=== PATIENT | female | born 2000 | race Caucasian/White ===

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

== ENCOUNTER 2018-01-06 11:02 | Emergency (ER) | payer OTHER ==
[~2018-01-06] VITALS: Ht 165.1 cm; Wt 97.7 kg
[~2018-01-06 11:02] MED LIST changes: +FLEXERIL 1010 MG/TAB PO
[2018-01-06 11:11] VITALS: TEMP 98.3
[2018-01-06 11:37] LABS: COLLECTION METHOD CATHETER
[2018-01-06 11:51] LABS: MUCOUS Present /lpf; PH 5 (5-8); SQUAMOUS EPITHELIAL 0-2 /hpf; URINE APPEARANCE Hazy; URINE BACTERIA None Seen /hpf; URINE BILIRUBIN Negative (NEGATIVE); URINE BLOOD 3+ (NEGATIVE); URINE COLOR Yellow; URINE GLUCOSE Negative (NEGATIVE); URINE KETONE Negative (NEGATIVE); URINE LEUKOCYTE ESTERASE Negative (NEGATIVE); URINE NITRATE Negative (NEGATIVE); URINE PROTEIN(semi-quant) Negative (NEGATIVE); URINE RBC >50 /hpf; URINE UROBILINOGEN Negative (NEGATIVE)
[2018-01-06 11:58] LABS: BASO # 0.1 (0.0-0.2); BASO % 0.5 % (0.0-2.0); EOS # 3.7 (0.0-0.7); EOS % 26.2 % (0-4.0); GRAN # 6.7 (1.4-6.5); HEMOGLOBIN 11.7 g/dl (12.0-15.0); LYMPH % 21.8 % (20.0-51.0); MEAN CELL VOLUME 81 fl (80.0-95.0); MEAN CORPUSCULAR HEMOGLOBIN 26 pg (26.0-32.0); MEAN CORPUSCULAR HGB CONC 32 g/dl (33.0-37.0); MEAN PLATELET VOLUME 9.8 fl (7.4-10.4); MONO # 0.4 (0.1-0.6); MONO % 3.2 % (1.7-9.3); PLATELET COUNT 352 K/mm3 (130-400); RED BLOOD COUNT 4.57 M/mm3 (4.10-5.30); REDCELL DISTRIBUTION WIDTH-CV 14.9 % (11.5-14.5)
[2018-01-06 12:03] LABS: BILIRUBIN,TOTAL 0.5 mg/dL (0.0-1.0); CALCIUM 9.3 mg/dL (8.4-10.2); CREATININE, serum 0.72 mg/dL (0.52-1.25); POTASSIUM 4.5 mmol/L (3.4-5.0); TOTAL PROTEIN 7.6 gm/dL (6.4-8.2)
[2018-01-06 12:10] LABS: HEMATOCRIT 36.9 % (35.0-45.0)
[2018-01-06 14:23] VITALS: BP 137/87; PULSE 89
== END 2018-01-06 14:23 | disposition home or self-care (01) ==
LOC: COL.ER 11:02
PROVIDERS: Nurse Practitioner
DX: R10.2 Pelvic and perineal pain (principal); E11.9 Type 2 diabetes mellitus without complications; F17.210 Nicotine dependence, cigarettes, uncomplicated; Z79.4 Long term (current) use of insulin

== ENCOUNTER 2018-01-12 05:24 | Emergency (ER) | payer OTHER ==
[~2018-01-12] VITALS: Ht 165.1 cm; Wt 97.7 kg
[2018-01-12 05:28] VITALS: TEMP 98.2
[2018-01-12] MEDS ORDERED: LANTUS100 U/ML SQ (05:43)
[2018-01-12] MEDS ORDERED: ALBUTEROL0.83 MG/ML IH (05:46)
[2018-01-12 06:18] LABS: BASO # 0.1 (0.0-0.2); BASO % 0.5 % (0.0-2.0); EOS # 2.6 (0.0-0.7); EOS % 20.7 % (0-4.0); GRAN # 5.3 (1.4-6.5); GRAN % 42.5 % (42.2-75.2); HEMATOCRIT 37.4 % (35.0-45.0); HEMOGLOBIN 11.7 g/dl (12.0-15.0); LYMPH # 3.9 (1.2-3.4); LYMPH % 31.2 % (20.0-51.0); MEAN CELL VOLUME 82 fl (80.0-95.0); MEAN CORPUSCULAR HEMOGLOBIN 26 pg (26.0-32.0); MEAN CORPUSCULAR HGB CONC 31 g/dl (33.0-37.0); MEAN PLATELET VOLUME 9.8 fl (7.4-10.4); MONO # 0.6 (0.1-0.6); MONO % 4.9 % (1.7-9.3); PLATELET COUNT 408 K/mm3 (130-400); RED BLOOD COUNT 4.59 M/mm3 (4.10-5.30); REDCELL DISTRIBUTION WIDTH-CV 14.6 % (11.5-14.5)
[2018-01-12 06:54] LABS: ALBUMIN 3.8 gm/dL (3.5-5.0); BILIRUBIN,TOTAL 0.1 mg/dL (0.0-1.0); CREATININE, serum 0.81 mg/dL (0.52-1.25); POTASSIUM 3.7 mmol/L (3.4-5.0); TOTAL PROTEIN 7.4 gm/dL (6.4-8.2)
[2018-01-12] MEDS ORDERED: ZITHROMAX Z PA250 MG PO (07:18)
[2018-01-12] MEDS ORDERED: PREDNISONE20 MG PO (07:18)
[2018-01-12 07:35] VITALS: BP 114/87; PULSE 95
== END 2018-01-12 07:34 | disposition home or self-care (01) ==
LOC: COL.ER 05:24
PROVIDERS: Emergency Medicine
DX: J45.901 Unspecified asthma with (acute) exacerbation (principal); E10.9 Type 1 diabetes mellitus without complications
CPT/HCPCS: J2930; J7030

== ENCOUNTER 2018-01-17 21:44 | Emergency (ER) | payer OTHER ==
[~2018-01-17] VITALS: Ht 165.1 cm; Wt 97.0 kg
[~2018-01-17 21:44] MED LIST changes: +ALBUTEROL0.83 MG/ML IH; +LANTUS100 U/ML SQ; +ZITHROMAX Z PA250 MG PO
[2018-01-17 21:50] VITALS: TEMP 98.1
[2018-01-17 23:00] LABS: BASO # 0.1 (0.0-0.2); BASO % 0.5 % (0.0-2.0); EOS # 2.5 (0.0-0.7); EOS % 13.5 % (0-4.0); GRAN # 10.4 (1.4-6.5); GRAN % 56.3 % (42.2-75.2); HEMATOCRIT 39.7 % (35.0-45.0); HEMOGLOBIN 12.5 g/dl (12.0-15.0); LYMPH # 4.5 (1.2-3.4); LYMPH % 24.4 % (20.0-51.0); MEAN CELL VOLUME 80 fl (80.0-95.0); MEAN CORPUSCULAR HEMOGLOBIN 25 pg (26.0-32.0); MEAN CORPUSCULAR HGB CONC 32 g/dl (33.0-37.0); MEAN PLATELET VOLUME 9.6 fl (7.4-10.4); MONO # 0.9 (0.1-0.6); MONO % 4.9 % (1.7-9.3); PLATELET COUNT 440 K/mm3 (130-400); RED BLOOD COUNT 4.94 M/mm3 (4.10-5.30); REDCELL DISTRIBUTION WIDTH-CV 14.3 % (11.5-14.5)
[2018-01-17] MEDS ORDERED: NOVOLOG FLEX100 U/ML SQ (23:08)
[2018-01-17] MEDS ORDERED: PRINIVIL5 MG PO (23:10)
[2018-01-17 23:11] LABS: BILIRUBIN,TOTAL 0.2 mg/dL (0.0-1.0); C-REACTIVE PROTEIN 1.8 mg/dL (0.0-0.9); CREATININE, serum 0.81 mg/dL (0.52-1.25); TOTAL PROTEIN 7.7 gm/dL (6.4-8.2)
[2018-01-17] MEDS ORDERED: LEVORA-28 30 MC1 TA1 PO (23:11)
[2018-01-17 23:28] LABS: COLLECTION METHOD CLEAN CATCH
[2018-01-17 23:37] LABS: MUCOUS Present /lpf; PH 6 (5-8); SQUAMOUS EPITHELIAL 0-2 /hpf; URINE APPEARANCE Hazy; URINE BACTERIA None Seen /hpf; URINE BILIRUBIN Negative (NEGATIVE); URINE BLOOD 3+ (NEGATIVE); URINE COLOR Yellow; URINE GLUCOSE Negative (NEGATIVE); URINE KETONE Negative (NEGATIVE); URINE LEUKOCYTE ESTERASE 1+ (NEGATIVE); URINE NITRATE Negative (NEGATIVE); URINE PROTEIN(semi-quant) 1+ (NEGATIVE); URINE RBC 20-50 /hpf; URINE UROBILINOGEN Negative (NEGATIVE)
[2018-01-18] MEDS ORDERED: CIPRO 500MG TA500 MG PO (00:31)
[2018-01-18 00:49] VITALS: BP 129/78; PULSE 77
== END 2018-01-18 00:49 | disposition home or self-care (01) ==
LOC: COL.ER 21:44
PROVIDERS: Emergency Medicine
DX: N12 Tubulo-interstitial nephritis, not specified as acute or chronic (principal); N39.0 Urinary tract infection, site not specified; N83.209 Unspecified ovarian cyst, unspecified side; E11.9 Type 2 diabetes mellitus without complications; F17.210 Nicotine dependence, cigarettes, uncomplicated; Z79.51 Long term (current) use of inhaled steroids; Z79.4 Long term (current) use of insulin
CPT/HCPCS: J0696; J2405; J3010; J7030; Q9967

== ENCOUNTER 2018-01-31 22:56 | Emergency (ER) | payer OTHER ==
[~2018-01-31] VITALS: Ht 165.1 cm; Wt 97.7 kg
[~2018-01-31 22:56] MED LIST changes: +CIPRO 500MG TA500 MG PO; +LEVORA-28 30 MC1 TA1 PO; +NOVOLOG FLEX100 U/ML SQ
[2018-01-31 23:02] VITALS: BP 123/65; TEMP 98.8
[2018-01-31 23:58] VITALS: PULSE 80
== END 2018-01-31 23:58 | disposition home or self-care (01) ==
LOC: COL.ER 22:56
DX: Z32.01 Encounter for pregnancy test, result positive (principal); F31.9 Bipolar disorder, unspecified; J45.909 Unspecified asthma, uncomplicated; F17.210 Nicotine dependence, cigarettes, uncomplicated; E11.9 Type 2 diabetes mellitus without complications; Z79.4 Long term (current) use of insulin; Z79.51 Long term (current) use of inhaled steroids

== ENCOUNTER 2018-02-05 16:26 | Emergency (ER) | payer OTHER ==
[~2018-02-05] VITALS: Ht 165.1 cm; Wt 97.7 kg
[2018-02-05 16:31] VITALS: TEMP 98.1
[2018-02-05 17:29] LABS: BASO # 0.1 (0.0-0.2); BASO % 0.4 % (0.0-2.0); EOS # 1.1 (0.0-0.7); EOS % 9.1 % (0-4.0); GRAN # 6.6 (1.4-6.5); GRAN % 56.5 % (42.2-75.2); HEMOGLOBIN 10.8 g/dl (12.0-15.0); LYMPH # 3.5 (1.2-3.4); LYMPH % 29.3 % (20.0-51.0); MEAN CELL VOLUME 82 fl (80.0-95.0); MEAN CORPUSCULAR HEMOGLOBIN 26 pg (26.0-32.0); MEAN CORPUSCULAR HGB CONC 31 g/dl (33.0-37.0); MEAN PLATELET VOLUME 9.6 fl (7.4-10.4); MONO # 0.5 (0.1-0.6); MONO % 4.4 % (1.7-9.3); PLATELET COUNT 319 K/mm3 (130-400); RED BLOOD COUNT 4.23 M/mm3 (4.10-5.30); REDCELL DISTRIBUTION WIDTH-CV 15.3 % (11.5-14.5)
[2018-02-05 17:30] LABS: HEMATOCRIT 34.5 % (35.0-45.0)
[2018-02-05 17:32] LABS: COLLECTION METHOD CLEAN CATCH
[2018-02-05 17:38] LABS: ALBUMIN 3.8 gm/dL (3.5-5.0); BILIRUBIN,TOTAL 0.2 mg/dL (0.0-1.0); CREATININE, serum 0.7 mg/dL (0.52-1.25); POTASSIUM 4.1 mmol/L (3.4-5.0); TOTAL PROTEIN 7.3 gm/dL (6.4-8.2)
[2018-02-05 17:39] LABS: MUCOUS Present /lpf; PH 5 (5-8); URINE APPEARANCE Hazy; URINE BACTERIA Rare /hpf; URINE BILIRUBIN Negative (NEGATIVE); URINE BLOOD Negative (NEGATIVE); URINE COLOR Yellow; URINE GLUCOSE Negative (NEGATIVE); URINE KETONE Negative (NEGATIVE); URINE LEUKOCYTE ESTERASE Negative (NEGATIVE); URINE NITRATE Negative (NEGATIVE); URINE PROTEIN(semi-quant) Negative (NEGATIVE); URINE RBC 0-2 /hpf; URINE UROBILINOGEN Negative (NEGATIVE)
[2018-02-05 18:29] VITALS: BP 111/81
[2018-02-05] MEDS ORDERED: FLAGYL500 MG PO (18:46)
[2018-02-05 19:01] VITALS: PULSE 80
== END 2018-02-05 19:02 | disposition home or self-care (01) ==
LOC: COL.ER 16:26
PROVIDERS: Nurse Practitioner
DX: O26.891 Other specified pregnancy related conditions, first trimester (principal); O24.011 Pre-existing type 1 diabetes mellitus, in pregnancy, first trimester; O99.511 Diseases of the respiratory system complicating pregnancy, first trimester; O99.341 Other mental disorders complicating pregnancy, first trimester; O99.331 Smoking (tobacco) complicating pregnancy, first trimester; J45.909 Unspecified asthma, uncomplicated; F17.210 Nicotine dependence, cigarettes, uncomplicated; E10.8 Type 1 diabetes mellitus with unspecified complications; F31.9 Bipolar disorder, unspecified; F41.9 Anxiety disorder, unspecified; Z3A.01 Less than 8 weeks gestation of pregnancy; Z79.4 Long term (current) use of insulin; Z79.51 Long term (current) use of inhaled steroids

== ENCOUNTER 2018-03-02 03:28 | Emergency (ER) | payer OTHER ==
[~2018-03-02] VITALS: Ht 165.1 cm; Wt 101.5 kg
[~2018-03-02 03:28] MED LIST changes: +FLAGYL500 MG PO; +NOVOLOG FLEX100 U/ML; -NOVOLOG FLEX100 U/ML SQ
[2018-03-02 03:30] VITALS: TEMP 98.5
[2018-03-02] MEDS ORDERED: PRENATAL MULTIV1 KIT PO (03:53)
[2018-03-02 04:17] LABS: BASO % 0.4 % (0.0-2.0); EOS # 0.6 (0.0-0.7); GRAN # 6.6 (1.4-6.5); GRAN % 68.1 % (42.2-75.2); HEMOGLOBIN 10.8 g/dl (12.0-15.0); LYMPH # 1.9 (1.2-3.4); LYMPH % 19.7 % (20.0-51.0); MEAN CELL VOLUME 80 fl (80.0-95.0); MEAN CORPUSCULAR HEMOGLOBIN 26 pg (26.0-32.0); MEAN CORPUSCULAR HGB CONC 33 g/dl (33.0-37.0); MEAN PLATELET VOLUME 9.5 fl (7.4-10.4); MONO # 0.5 (0.1-0.6); MONO % 5.5 % (1.7-9.3); PLATELET COUNT 322 K/mm3 (130-400); RED BLOOD COUNT 4.11 M/mm3 (4.10-5.30); REDCELL DISTRIBUTION WIDTH-CV 14.6 % (11.5-14.5)
[2018-03-02 04:26] LABS: HEMATOCRIT 32.9 % (35.0-45.0)
[2018-03-02 04:33] LABS: ALBUMIN 3.7 gm/dL (3.5-5.0); BILIRUBIN,TOTAL 0.2 mg/dL (0.0-1.0); C-REACTIVE PROTEIN 3.5 mg/dL (0.0-0.9); CREATININE, serum 0.66 mg/dL (0.52-1.25); POTASSIUM 3.1 mmol/L (3.4-5.0); TOTAL PROTEIN 7.3 gm/dL (6.4-8.2)
[2018-03-02 05:14] LABS: COLLECTION METHOD CLEAN CATCH
[2018-03-02 05:21] LABS: MUCOUS Present /lpf; PH 5 (5-8); URINE APPEARANCE Hazy; URINE BACTERIA Rare /hpf; URINE BILIRUBIN Negative (NEGATIVE); URINE BLOOD Negative (NEGATIVE); URINE COLOR Yellow; URINE GLUCOSE Negative (NEGATIVE); URINE KETONE Negative (NEGATIVE); URINE LEUKOCYTE ESTERASE Negative (NEGATIVE); URINE NITRATE Negative (NEGATIVE); URINE PROTEIN(semi-quant) Negative (NEGATIVE); URINE RBC 0-2 /hpf; URINE UROBILINOGEN Negative (NEGATIVE)
[2018-03-02] MEDS ORDERED: PHENERGAN 25 TA25 MG PO (05:50)
[2018-03-02 06:49] VITALS: BP 134/77; PULSE 96
== END 2018-03-02 06:51 | disposition home or self-care (01) ==
LOC: COL.ER 03:28
PROVIDERS: Emergency Medicine
DX: O26.891 Other specified pregnancy related conditions, first trimester (principal); R10.2 Pelvic and perineal pain; Z3A.08 8 weeks gestation of pregnancy; Z79.51 Long term (current) use of inhaled steroids
CPT/HCPCS: J2550; J7030

== ENCOUNTER → 2018-03-03 | Outpatient (CLI) | payer OTHER ==
[~2018-03-03] MED LIST changes: +PHENERGAN 25 TA25 MG PO; +PRENATAL MULTIV1 KIT PO
== END ==
LOC: COL.RAD 11:15
DX: O99.89 Other specified diseases and conditions complicating pregnancy, childbirth and the puerperium (principal); R10.2 Pelvic and perineal pain; Z3A.14 14 weeks gestation of pregnancy

== ENCOUNTER 2018-04-13 12:46 | Emergency (ER) | payer OTHER ==
[~2018-04-13] VITALS: Ht 165.1 cm; Wt 97.1 kg
[2018-04-13 12:58] VITALS: TEMP 98.2
[2018-04-13 13:32] LABS: COLLECTION METHOD CLEAN CATCH
[2018-04-13 13:35] LABS: BASO % 0.2 % (0.0-2.0); EOS # 0.6 (0.0-0.7); EOS % 4.8 % (0-4.0); GRAN # 7.9 (1.4-6.5); GRAN % 64.4 % (42.2-75.2); HEMOGLOBIN 10.9 g/dl (12.0-15.0); LYMPH # 3.3 (1.2-3.4); LYMPH % 26.6 % (20.0-51.0); MEAN CELL VOLUME 81 fl (80.0-95.0); MEAN CORPUSCULAR HEMOGLOBIN 27 pg (26.0-32.0); MEAN CORPUSCULAR HGB CONC 33 g/dl (33.0-37.0); MEAN PLATELET VOLUME 9.7 fl (7.4-10.4); MONO # 0.5 (0.1-0.6); MONO % 3.8 % (1.7-9.3); PLATELET COUNT 330 K/mm3 (130-400); RED BLOOD COUNT 4.09 M/mm3 (4.10-5.30); REDCELL DISTRIBUTION WIDTH-CV 15.6 % (11.5-14.5)
[2018-04-13] MEDS ORDERED: NOVOLIN N100 U/ML SQ ×2 (13:39)
[2018-04-13 13:41] LABS: HEMATOCRIT 33.3 % (35.0-45.0)
[2018-04-13 13:42] LABS: ALBUMIN 3.6 gm/dL (3.5-5.0); BILIRUBIN,TOTAL 0.2 mg/dL (0.0-1.0); CALCIUM 8.8 mg/dL (8.4-10.2); CREATININE, serum 0.63 mg/dL (0.52-1.25); POTASSIUM 3.9 mmol/L (3.4-5.0); TOTAL PROTEIN 7.1 gm/dL (6.4-8.2)
[2018-04-13 13:50] LABS: MUCOUS Present /lpf; PH 5 (5-8); SQUAMOUS EPITHELIAL 0-2 /hpf; URINE APPEARANCE Clear; URINE BACTERIA Rare /hpf; URINE BILIRUBIN Negative (NEGATIVE); URINE BLOOD Negative (NEGATIVE); URINE COLOR Yellow; URINE GLUCOSE Negative (NEGATIVE); URINE KETONE Negative (NEGATIVE); URINE LEUKOCYTE ESTERASE Negative (NEGATIVE); URINE NITRATE Negative (NEGATIVE); URINE PROTEIN(semi-quant) Negative (NEGATIVE); URINE RBC 0-2 /hpf; URINE UROBILINOGEN Negative (NEGATIVE)
[2018-04-13 14:39] VITALS: BP 110/64; PULSE 81
== END 2018-04-13 14:41 | disposition home or self-care (01) ==
LOC: COL.ER 12:46
PROVIDERS: Emergency Medicine
DX: O26.892 Other specified pregnancy related conditions, second trimester (principal); O24.912 Unspecified diabetes mellitus in pregnancy, second trimester; O99.512 Diseases of the respiratory system complicating pregnancy, second trimester; J45.909 Unspecified asthma, uncomplicated; R10.9 Unspecified abdominal pain; Z87.891 Personal history of nicotine dependence; Z3A.15 15 weeks gestation of pregnancy; Z79.4 Long term (current) use of insulin
CPT/HCPCS: J7030

== ENCOUNTER 2018-07-16 13:20 | Emergency (ER) | payer OTHER, MEDICAID ==
[~2018-07-16] VITALS: Ht 165.1 cm; Wt 105.0 kg
[~2018-07-16 13:20] MED LIST changes: +NOVOLIN N100 U/ML SQ
[2018-07-16 13:24] VITALS: TEMP 98.4
[2018-07-16] MEDS ORDERED: CRUTCHES MC (14:10)
[2018-07-16 14:52] VITALS: BP 111/71; PULSE 93
== END 2018-07-16 14:53 | disposition home or self-care (01) ==
LOC: COL.ER 13:20
DX: S92.351A Displaced fracture of fifth metatarsal bone, right foot, initial encounter for closed fracture (principal); Z79.51 Long term (current) use of inhaled steroids; Z79.4 Long term (current) use of insulin; X50.0XXA Overexertion from strenuous movement or load, initial encounter; Y92.009 Unspecified place in unspecified non-institutional (private) residence as the place of occurrence of the external cause

== ENCOUNTER 2019-06-12 14:42 | Emergency (ER) | payer MEDICAID ==
[~2019-06-12] VITALS: Ht 165.1 cm; Wt 118.2 kg
[~2019-06-12 14:42] MED LIST changes: +CRUTCHES MC
[2019-06-12 14:53] VITALS: BP 113/55; TEMP 98.6
[2019-06-12] MEDS ORDERED: BYDUREON PEN2 MG SQ (15:07)
[2019-06-12] MEDS ORDERED: PROVENTIL0.09 MG/A1 IH (15:07)
[2019-06-12 15:49] LABS: BASO % 0.2 % (0.0-2.0); EOS # 0.3 (0.0-0.7); GRAN # 14.2 (1.4-6.5); GRAN % 88.7 % (42.2-75.2); HEMATOCRIT 40.2 % (37.0-47.0); HEMOGLOBIN 12.2 g/dl (12.5-16.0); LYMPH # 0.8 (1.2-3.4); LYMPH % 5.3 % (20.0-51.0); MEAN CELL VOLUME 78 fl (80.0-100.0); MEAN CORPUSCULAR HEMOGLOBIN 24 pg (27.0-31.0); MEAN CORPUSCULAR HGB CONC 30 g/dl (33.0-37.0); MEAN PLATELET VOLUME 9.7 fl (7.4-10.4); MONO # 0.6 (0.1-0.6); MONO % 3.5 % (1.7-9.3); PLATELET COUNT 393 K/mm3 (130-400); RED BLOOD COUNT 5.16 M/mm3 (4.10-5.30); REDCELL DISTRIBUTION WIDTH-CV 15.9 % (11.5-14.5)
[2019-06-12 15:51] LABS: ALBUMIN 4.4 gm/dL (3.5-5.0); BILIRUBIN,TOTAL 0.5 mg/dL (0.0-1.0); C-REACTIVE PROTEIN 1.2 mg/dL (0.0-0.9); CALCIUM 9.2 mg/dL (8.4-10.2); CREATININE, serum 0.82 (0.52-1.25); TOTAL PROTEIN 8.8 gm/dL (6.4-8.2)
[2019-06-12 17:45] LABS: COLLECTION METHOD CLEAN CATCH
[2019-06-12 17:50] LABS: MUCOUS Present /lpf; PH 5 (5-8); URINE APPEARANCE Hazy; URINE BACTERIA None Seen /hpf; URINE BILIRUBIN Negative (NEGATIVE); URINE BLOOD Negative (NEGATIVE); URINE COLOR Yellow; URINE GLUCOSE Negative (NEGATIVE); URINE KETONE Negative (NEGATIVE); URINE LEUKOCYTE ESTERASE Negative (NEGATIVE); URINE NITRATE Negative (NEGATIVE); URINE PROTEIN(semi-quant) Negative (NEGATIVE); URINE RBC 0-2 /hpf; URINE UROBILINOGEN Negative (NEGATIVE)
[2019-06-12] MEDS ORDERED: ZOFRAN ODT4 MG PO (18:09)
[2019-06-12 18:20] VITALS: PULSE 79
== END 2019-06-12 18:18 | disposition home or self-care (01) ==
LOC: COL.ER 14:42
PROVIDERS: Physician Assistant
DX: K52.9 Noninfective gastroenteritis and colitis, unspecified (principal); E11.9 Type 2 diabetes mellitus without complications; F31.9 Bipolar disorder, unspecified; F41.9 Anxiety disorder, unspecified; Z79.4 Long term (current) use of insulin; Z87.891 Personal history of nicotine dependence
CPT/HCPCS: J2405; J7030; Q9967

== ENCOUNTER 2019-08-09 12:06 | Emergency (ER) | payer MEDICAID ==
[~2019-08-09] VITALS: Ht 165.1 cm; Wt 118.2 kg
[~2019-08-09 12:06] MED LIST changes: +BYDUREON PEN2 MG SQ; +ZOFRAN ODT4 MG PO
[2019-08-09 12:09] VITALS: TEMP 96.2
[2019-08-09] MEDS ORDERED: PAXIL 20MG20 MG PO (12:15)
[2019-08-09] MEDS ORDERED: BENADRYL25 M2 (12:16)
[2019-08-09] MEDS ORDERED: PREDNISONE20 MG PO (16:09)
[2019-08-09 16:11] VITALS: BP 125/67
[2019-08-09 16:20] VITALS: PULSE 98
== END 2019-08-09 16:20 | disposition home or self-care (01) ==
LOC: COL.ER 12:06
DX: J45.901 Unspecified asthma with (acute) exacerbation (principal); F17.210 Nicotine dependence, cigarettes, uncomplicated
CPT/HCPCS: J7512

== ENCOUNTER 2019-10-19 12:23 | Emergency (ER) | payer MEDICAID ==
[~2019-10-19] VITALS: Ht 165.1 cm; Wt 113.6 kg
[~2019-10-19 12:23] MED LIST changes: +BENADRYL25 M2; +PAXIL 20MG20 MG PO
[2019-10-19 12:35] VITALS: TEMP 98.9
[2019-10-19] MEDS ORDERED: RT ADVAIR 228 DISKUS IH (12:41)
[2019-10-19] MEDS ORDERED: PAXIL 30MG30 MG PO (12:41)
[2019-10-19 13:16] LABS: STREP SCREEN NEGATIVE
[2019-10-19 13:56] LABS: BASO # 0.1 (0.0-0.2); BASO % 0.3 % (0.0-2.0); EOS # 0.2 (0.0-0.7); EOS % 1.4 % (0-4.0); GRAN # 11.8 (1.4-6.5); GRAN % 77.8 % (42.2-75.2); HEMOGLOBIN 10.6 g/dl (12.5-16.0); LYMPH # 2.3 (1.2-3.4); LYMPH % 15.2 % (20.0-51.0); MEAN CELL VOLUME 76 fl (80.0-100.0); MEAN CORPUSCULAR HEMOGLOBIN 23 pg (27.0-31.0); MEAN CORPUSCULAR HGB CONC 29 g/dl (33.0-37.0); MEAN PLATELET VOLUME 10.2 fl (7.4-10.4); MONO # 0.8 (0.1-0.6); PLATELET COUNT 357 K/mm3 (130-400); RED BLOOD COUNT 4.72 M/mm3 (4.10-5.30); REDCELL DISTRIBUTION WIDTH-CV 18.8 % (11.5-14.5)
[2019-10-19 14:17] LABS: ALBUMIN 4.1 gm/dL (3.5-5.0); BILIRUBIN,TOTAL 0.6 mg/dL (0.0-1.0); CALCIUM 9.2 mg/dL (8.4-10.2); CREATININE, serum 0.63 (0.52-1.25); POTASSIUM 4.1 mmol/L (3.4-5.0); TOTAL PROTEIN 8.1 gm/dL (6.4-8.2)
[2019-10-19 14:26] VITALS: BP 126/83; PULSE 90
[2019-10-19] MEDS ORDERED: CLEOCIN HCL300 MG PO (14:36)
[2019-10-19] MEDS ORDERED: PREDNISONE20 MG PO (14:36)
== END 2019-10-19 14:45 | disposition home or self-care (01) ==
LOC: COL.ER 12:23
PROVIDERS: Nurse Practitioner
DX: J03.90 Acute tonsillitis, unspecified (principal); F31.9 Bipolar disorder, unspecified; J45.909 Unspecified asthma, uncomplicated; F41.9 Anxiety disorder, unspecified; F17.210 Nicotine dependence, cigarettes, uncomplicated; Z79.51 Long term (current) use of inhaled steroids
CPT/HCPCS: J1885; J7512

== ENCOUNTER 2019-12-13 01:14 | Emergency (ER) | payer MEDICAID ==
[~2019-12-13] VITALS: Ht 165.1 cm; Wt 113.6 kg
[~2019-12-13 01:14] MED LIST changes: +CLEOCIN HCL300 MG PO; +PAXIL 30MG30 MG PO; +RT ADVAIR 228 DISKUS IH
[2019-12-13 01:25] VITALS: BP 128/81; TEMP 98.6
[2019-12-13 03:20] LABS: STREP SCREEN NEGATIVE
[2019-12-13 04:14] VITALS: PULSE 99
== END 2019-12-13 04:15 | disposition home or self-care (01) ==
LOC: COL.ER 01:14
PROVIDERS: Emergency Medicine
DX: R06.03 Acute respiratory distress (principal); J45.909 Unspecified asthma, uncomplicated; E11.9 Type 2 diabetes mellitus without complications; Z20.828 Contact with and (suspected) exposure to other viral communicable diseases; Z79.51 Long term (current) use of inhaled steroids; Z79.52 Long term (current) use of systemic steroids

== ENCOUNTER → 2022-02-26 | Outpatient (CLI) | payer MEDICAID | LOC: DIA.ED 02-13 08:01 | DX: E11.40 Type 2 diabetes mellitus with diabetic neuropathy, unspecified (principal) | CPT/HCPCS: G0108 ==